=== PATIENT | female | born 1955 | race Caucasian/White ===

== ENCOUNTER 2019-10-22 07:00 | Inpatient (IN) ==
[2019-10-22] MEDS ORDERED: Isovue-370 500 ML BOTTLE IVP ONE (07:36)
[2019-10-22 07:45] LABS: Basophils % 0.3 %; Eosinophils # 0.1 K/mcL (0.0-0.6); Eosinophils % 1.4 %; Hematocrit 28.3 % (35.3-44.9); Hemoglobin 8.3 g/dL (11.5-15.4); Immature Granulocytes % 0.5 % (0-4); Lymphocytes % 21.2 %; Mean Corpuscular HGB Conc 29.3 g/dL (31.6-35.5); Mean Corpuscular Hemoglobin 21.7 pg (28.0-33.3); Mean Corpuscular Volume 73.9 fL (83.0-100.0); Mean Platelet Volume 9.1 fL (9.4-12.4); Monocytes # 0.5 K/mcL (0.0-1.3); Monocytes % 5.6 %; Neutrophils # 6.6 K/mcL (1.6-8.9); Platelet Count 475 K/mcL (140-400); Red Blood Count 3.83 M/mcL (3.82-4.97); White Blood Count 9.3 K/mcL (4.3-11.1)
[2019-10-22 07:46] LABS: VBG HCO3 27 mEq/L (21-27); VBG PCO2 55 mmHg (41-51); VBG PO2 75 mmHg (25-50)
[2019-10-22 07:53] LABS: BUN/Creatinine Ratio 19 (6-26); Blood Urea Nitrogen 17 mg/dL (8-23); Calcium 9.5 mg/dL (8.6-10.3); Carbon Dioxide 25 mEq/L (23-29); Chloride 97 mEq/L (98-107); Glucose 269 mg/dL (70-105); Osmolality,Calculated 287 (280-300); Potassium 3.9 mEq/L (3.5-5.1); Sodium 133 mEq/L (136-145); eGFR For African Americans > 60 (> 60); eGFR For Non-African Americans > 60 (> 60)
[2019-10-22 07:54] LABS: Troponin I < 0.03 ng/mL (< 0.04)
[2019-10-22] MEDS ORDERED: Acetaminophen 325 MG TABLET PO PRN (09:40)
[2019-10-22] MEDS ORDERED: Ondansetron 4 MG/2 ML VIAL IVP PRN (09:40)
[2019-10-22] MEDS ORDERED: Naloxone 0.4 MG/ML INJ IVP PRN ×2 (09:40→12:28)
[2019-10-22] MEDS ORDERED: *HR* Propofol 200 MG/20 ML VIAL IVP ONE ×4 (10:41→12:42)
[2019-10-22] MEDS ORDERED: Lidocaine -MPF 4% 5 ML AMPUL ONE (10:42)
[2019-10-22] MEDS ORDERED: *HR* Metoprolol 5 MG/5 ML VIAL IVP ONE (11:48)
[2019-10-22] MEDS ORDERED: *HR* Rocuronium Bromide 50 MG/5 ML VIAL ONE ×3 (12:19→14:11)
[2019-10-22] MEDS ORDERED: *HR* Midazolam HCl 2 MG/2 ML VIAL ONE (12:20)
[2019-10-22] MEDS ORDERED: Heparin 1,000 UNITS/500 mL 500 ML ONE (12:26)
[2019-10-22] MEDS ORDERED: D5% in Water 1,000 ML IVC PRN (12:28)
[2019-10-22] MEDS ORDERED: Artificial Tears SOLN 15 ML BOTTLE BOTH EYES PRN (12:28)
[2019-10-22] MEDS ORDERED: *HR* Dextrose 50 % in Water (Syg) 50 ML SYRINGE IVP PRN (12:28)
[2019-10-22] MEDS ORDERED: Dextrose Gel 15 GM/37.5 ML TUBE PO PRN ×2 (12:28)
[2019-10-22] MEDS ORDERED: Albuterol 2.5 MG/3 ML NEBULIZER IH PRN (12:33)
[2019-10-22] MEDS ORDERED: *HR* EPINEPHrine 1 MG/10 ML SYRINGE INTRATRACH ONE (12:33)
[2019-10-22] MEDS ORDERED: EPHEDrine 50 MG/ML VIAL ONE ×2 (12:41→13:04)
[2019-10-22] MEDS ORDERED: *HR* Phenylephrine 10 MG/ML VIAL ONE (12:42)
[2019-10-22] MEDS ORDERED: Naloxone 0.4 MG/ML INJ ONE (12:45)
[2019-10-22] MEDS ORDERED: *HR* Norepinephrine 4 MG/4 ML VIAL IVC ONE (12:48)
[2019-10-22] MEDS ORDERED: D5% in Water 250 ML ONE (12:48)
[2019-10-22] MEDS ORDERED: Albumin Human 5% 25.0 GM/500 ML VIAL ONE (12:49)
[2019-10-22] MEDS ORDERED: *HR* Midazolam HCl 5 MG/5 ML VIAL IVP ONE (12:56)
[2019-10-22 13:44] LABS: ABG Base Excess 0 mEq/L (-2 to 3); ABG Chloride 105 mEq/L (98-107); ABG Glucose 127 mg/dL (60-95); ABG HCO3 25 mEq/L (21-27); ABG Ionized Calcium 0.95 mmol/L (1.15-1.35); ABG Oxygen Saturation 100 % (95-98); ABG PCO2 38 mmHg (35-45); ABG PH 7.42 pH Units (7.32-7.45); ABG PO2 448 mmHg (85-104); ABG TCO2 26 mEq/L (20-26)
[2019-10-22] MEDS ORDERED: *HR* Heparin 5,000 UNIT/ML VIAL SQ SCH (14:00)
[2019-10-22] MEDS ORDERED: ceFAZolin 2,000 MG in Water for inj. (sterile) 20 ML IVP ONE (14:00)
[2019-10-22 14:22] LABS: Estimated Average Glucose 157 mg/dl
[2019-10-22] MEDS ORDERED: NiCARdipine 2.5 MG/10 ML Syringe IVPB ONE (14:45)
[2019-10-22] MEDS ORDERED: Amiodarone Premix 360 MG/200 ML BAG IVC ONE ×2 (14:52→16:08)
[2019-10-22] MEDS ORDERED: *HR* Amiodarone 150 MG/3 ML VIAL IVPB ONE (14:52)
[2019-10-22 15:10] LABS: ABG Base Excess 0 mEq/L (-2 to 3); ABG Chloride 105 mEq/L (98-107); ABG Glucose 155 mg/dL (60-95); ABG HCO3 25 mEq/L (21-27); ABG Ionized Calcium 0.86 mmol/L (1.15-1.35); ABG Oxygen Saturation 100 % (95-98); ABG PCO2 40 mmHg (35-45); ABG PO2 473 mmHg (85-104); ABG TCO2 26 mEq/L (20-26)
[2019-10-22] MEDS: Albuterol 2.5 MG/3 ML NEBULIZER IH SCH ×3 (16:20→23:52)
[2019-10-22] MEDS: Ipratropium/Albuterol Neb 3 ML IH SCH ×2 (16:21→22:03)
[2019-10-22] MEDS: FentaNYL (PF) 1,000 MCG in 0.9 % Sodium Chloride 80 ML IVC SCH (16:30)
[2019-10-22] MEDS: 0.9 % Sodium Chloride 1,000 ML IVC SCH (16:59)
[2019-10-22 17:17] LABS: ABG Base Excess -1 mEq/L (-2 to 3); ABG HCO3 24 mEq/L (21-27); ABG Oxygen Saturation 100 % (95-98); ABG PCO2 40 mmHg (35-45); ABG PH 7.38 pH Units (7.32-7.45); ABG PO2 247 mmHg (85-104); ABG TCO2 25 mEq/L (20-26); Blood Gas Modality ASSIST CONTROL; Blood Gas VT 450 cc
[2019-10-22] MEDS: Artificial Tears SOLN 15 ML BOTTLE BOTH EYES SCH ×3 (18:20→23:13)
[2019-10-22] MEDS: Insulin LISPRO 300 UNITS/3 ML VIAL SQ SCH ×2 (18:21→23:13)
[2019-10-22 20:36] LABS: Hematocrit 23.7 % (35.3-44.9); Hemoglobin 6.9 g/dL (11.5-15.4)
[2019-10-22] MEDS: Chlorhexidine Rinse 15 ML MOUTHWASH MM SCH (20:37)
[2019-10-22] MEDS: Amiodarone Premix 360 MG/200 ML BAG IVC SCH (20:44)
[2019-10-22] MEDS: *HR* Heparin 5,000 UNIT/ML VIAL SQ SCH (22:19)
[2019-10-22] MEDS: *HR* Labetalol 20 MG/4 ML SYRINGE IVP PRN (22:24)
[2019-10-22] MEDS: ceFAZolin 1,000 MG in Water for inj. (sterile) 10 ML IVP SCH (23:16)
[2019-10-23] MEDS: Albuterol 2.5 MG/3 ML NEBULIZER IH SCH (03:46)
[2019-10-23] MEDS: Ipratropium/Albuterol Neb 3 ML IH SCH ×4 (03:47→21:17)
[2019-10-23] MEDS: Dexmedetomidine HCl 400 MCG/100 ML MLS IVC SCH ×2 (04:12→11:04)
[2019-10-23] MEDS: Artificial Tears SOLN 15 ML BOTTLE BOTH EYES SCH ×6 (04:19→23:15)
[2019-10-23 04:35] LABS: ABG Base Excess 1 mEq/L (-2 to 3); ABG HCO3 27 mEq/L (21-27); ABG Oxygen Saturation 99 % (95-98); ABG PCO2 46 mmHg (35-45); ABG PH 7.37 pH Units (7.32-7.45); ABG PO2 145 mmHg (85-104); ABG TCO2 28 mEq/L (20-26); Blood Gas Modality ASSIST CONTROL; Blood Gas VT 450 cc
[2019-10-23] MEDS: 0.9 % Sodium Chloride 1,000 ML IVC SCH ×2 (05:01→16:59)
[2019-10-23] MEDS: *HR* Heparin 5,000 UNIT/ML VIAL SQ SCH ×3 (05:01→20:33)
[2019-10-23 05:10] LABS: Basophils % 0.1 %; Hematocrit 22.2 % (35.3-44.9); Hemoglobin 6.7 g/dL (11.5-15.4); Immature Granulocytes % 0.3 % (0-4); Lymphocytes # 1.1 K/mcL (0.6-4.6); Lymphocytes % 11.5 %; Mean Corpuscular HGB Conc 30.2 g/dL (31.6-35.5); Mean Corpuscular Hemoglobin 21.9 pg (28.0-33.3); Mean Corpuscular Volume 72.5 fL (83.0-100.0); Mean Platelet Volume 9.2 fL (9.4-12.4); Monocytes # 0.9 K/mcL (0.0-1.3); Monocytes % 10.3 %; Neutrophils # 7.1 K/mcL (1.6-8.9); Platelet Count 405 K/mcL (140-400); Red Blood Count 3.06 M/mcL (3.82-4.97); Red Cell Distribution Width 16.1 % (11.5-14.5); Segmented Neutrophils % 77.8 %; White Blood Count 9.2 K/mcL (4.3-11.1)
[2019-10-23 05:14] LABS: INR 1.2; Prothrombin Time 13.4 Seconds (9.4-12.1)
[2019-10-23 05:28] LABS: Alanine Aminotransferase 4 Units/L (7-52); Albumin 2.7 g/dL (3.5-5.7); Albumin/Globulin Ratio 0.9 (1.1-2.2); Alkaline Phosphatase 63 Units/L (34-104); Aspartate Amino Transferase 8 Units/L (13-39); BUN/Creatinine Ratio 21 (6-26); Bilirubin,Total 0.1 mg/dL (0.3-1.0); Blood Urea Nitrogen 17 mg/dL (8-23); Carbon Dioxide 23 mEq/L (23-29); Chloride 102 mEq/L (98-107); Globulin 2.9 g/dL (2.4-3.5); Glucose 206 mg/dL (70-105); Osmolality,Calculated 290 (280-300); Phosphorous 4.8 mg/dL (2.7-4.5); Potassium 3.7 mEq/L (3.5-5.1); Sodium 136 mEq/L (136-145); Total Protein 5.6 g/dL (6.4-8.9); eGFR For African Americans > 60 (> 60); eGFR For Non-African Americans > 60 (> 60)
[2019-10-23] MEDS: Insulin LISPRO 300 UNITS/3 ML VIAL SQ SCH ×4 (06:38→23:48)
[2019-10-23] MEDS ORDERED: 0.9 % Sodium Chloride 250 ML ONE (08:19)
[2019-10-23] MEDS: ceFAZolin 1,000 MG in Water for inj. (sterile) 10 ML IVP SCH ×3 (08:21→23:48)
[2019-10-23] MEDS: Chlorhexidine Rinse 15 ML MOUTHWASH MM SCH ×2 (08:21→20:31)
[2019-10-23] MEDS: Amiodarone Premix 360 MG/200 ML BAG IVC SCH ×2 (08:21→20:33)
[2019-10-23] MEDS: Pantoprazole 40 MG VIAL IVP SCH (08:21)
[2019-10-23] MEDS: FentaNYL (PF) 1,000 MCG in 0.9 % Sodium Chloride 80 ML IVC SCH (11:04)
[2019-10-23] MEDS ORDERED: Furosemide 20 MG/2 ML VIAL IVP ONE (11:13)
[2019-10-23] MEDS ORDERED: Acetaminophen IV 1,000 MG/100 ML INFUS..BTL IVPB ONE (11:38)
[2019-10-23] MEDS: *HR* Labetalol 20 MG/4 ML SYRINGE IVP PRN ×2 (15:45→20:38)
[2019-10-23 18:07] LABS: Hematocrit 28.2 % (35.3-44.9)
[2019-10-23 18:08] LABS: Hemoglobin 8.6 g/dL (11.5-15.4)
[2019-10-23] MEDS ORDERED: *HR* OxyCODONE Oral Soln 5 MG/5 ML UD.LIQ PO PRN (18:40)
[2019-10-24] MEDS: Artificial Tears SOLN 15 ML BOTTLE BOTH EYES SCH ×5 (03:23→23:27)
[2019-10-24] MEDS: Ipratropium/Albuterol Neb 3 ML IH SCH ×4 (03:36→21:26)
[2019-10-24 03:45] LABS: Basophils % 0.1 %; Hematocrit 26.9 % (35.3-44.9); Hemoglobin 8.6 g/dL (11.5-15.4); Immature Granulocytes % 0.4 % (0-4); Lymphocytes # 1.6 K/mcL (0.6-4.6); Lymphocytes % 11.5 %; Mean Corpuscular Hemoglobin 23.9 pg (28.0-33.3); Mean Corpuscular Volume 74.7 fL (83.0-100.0); Monocytes # 1.3 K/mcL (0.0-1.3); Monocytes % 9.5 %; Neutrophils # 10.6 K/mcL (1.6-8.9); Platelet Count 501 K/mcL (140-400); Red Cell Distribution Width 17.6 % (11.5-14.5); Segmented Neutrophils % 78.5 %; White Blood Count 13.5 K/mcL (4.3-11.1)
[2019-10-24 03:59] LABS: BUN/Creatinine Ratio 22 (6-26); Blood Urea Nitrogen 18 mg/dL (8-23); Calcium 8.2 mg/dL (8.6-10.3); Carbon Dioxide 25 mEq/L (23-29); Chloride 100 mEq/L (98-107); Glucose 131 mg/dL (70-105); Osmolality,Calculated 280 (280-300); Potassium 3.4 mEq/L (3.5-5.1); Sodium 133 mEq/L (136-145); eGFR For African Americans > 60 (> 60); eGFR For Non-African Americans > 60 (> 60)
[2019-10-24] MEDS: Insulin LISPRO 300 UNITS/3 ML VIAL SQ SCH ×3 (06:53→18:37)
[2019-10-24] MEDS: *HR* Heparin 5,000 UNIT/ML VIAL SQ SCH ×3 (06:54→20:25)
[2019-10-24] MEDS: Chlorhexidine Rinse 15 ML MOUTHWASH MM SCH ×2 (08:27→23:27)
[2019-10-24] MEDS: 0.9 % Sodium Chloride 1,000 ML IVC SCH ×2 (08:28→23:27)
[2019-10-24] MEDS: Pantoprazole 40 MG VIAL IVP SCH (08:28)
[2019-10-24] MEDS: *HR* Amiodarone 200 MG TABLET PO SCH ×2 (15:02→20:24)
[2019-10-25] MEDS: Artificial Tears SOLN 15 ML BOTTLE BOTH EYES SCH ×3 (00:10→08:02)
[2019-10-25] MEDS: Insulin LISPRO 300 UNITS/3 ML VIAL SQ SCH ×4 (01:16→17:13)
[2019-10-25] MEDS: Ipratropium/Albuterol Neb 3 ML IH SCH ×4 (03:27→21:47)
[2019-10-25] MEDS: *HR* Heparin 5,000 UNIT/ML VIAL SQ SCH ×3 (06:23→20:58)
[2019-10-25] MEDS: *HR* Amiodarone 200 MG TABLET PO SCH (07:59)
[2019-10-25] MEDS: Chlorhexidine Rinse 15 ML MOUTHWASH MM SCH (07:59)
[2019-10-25] MEDS: Pantoprazole 40 MG VIAL IVP SCH (07:59)
[2019-10-25] MEDS ORDERED: Iron Sucrose Complex 400 MG in 0.9 % Sodium Chloride 250 ML IVPB ONE ×2 (08:08→08:50)
[2019-10-25] MEDS ORDERED: *HR* HYDROcodone/Acet 5/325 mg TABLET PO PRN ×2 (08:08→08:50)
[2019-10-25] MEDS ORDERED: *HR* Dextrose 50 % in Water (Syg) 50 ML SYRINGE IVP PRN (08:50)
[2019-10-25] MEDS ORDERED: D5% in Water 1,000 ML IVC PRN (08:50)
[2019-10-25] MEDS ORDERED: Naloxone 0.4 MG/ML INJ IVP PRN (08:50)
[2019-10-25] MEDS ORDERED: Ondansetron 4 MG/2 ML VIAL IVP PRN (08:50)
[2019-10-25] MEDS ORDERED: Dextrose Gel 15 GM/37.5 ML TUBE PO PRN ×2 (08:50)
[2019-10-25] MEDS ORDERED: Famotidine 20 MG TABLET PO SCH (09:00)
[2019-10-25] MEDS ORDERED: *HR* Amiodarone 200 MG TABLET PO SCH (09:00)
[2019-10-25] MEDS ORDERED: Gabapentin 300 MG CAPSULE PO SCH (09:00)
[2019-10-25] MEDS: Gabapentin 300 MG CAPSULE PO SCH ×3 (09:29→20:39)
[2019-10-25] MEDS: Famotidine 20 MG TABLET PO SCH ×2 (09:30→15:46)
[2019-10-25] MEDS ORDERED: Gadolinium Contrast Agent (WT Based) IV PRN (11:22)
[2019-10-25] MEDS ORDERED: Insulin LISPRO 300 UNITS/3 ML VIAL SQ SCH (12:00)
[2019-10-25] MEDS: Sennosides/Docusate Sodium TABLET PO SCH (20:37)
[2019-10-26] MEDS: Insulin LISPRO 300 UNITS/3 ML VIAL SQ SCH ×5 (00:11→21:33)
[2019-10-26] MEDS: Ipratropium/Albuterol Neb 3 ML IH SCH ×4 (03:48→22:00)
[2019-10-26 04:49] LABS: Hematocrit 27.7 % (35.3-44.9); Hemoglobin 8.3 g/dL (11.5-15.4); Mean Corpuscular Hemoglobin 23.1 pg (28.0-33.3); Mean Corpuscular Volume 76.9 fL (83.0-100.0); Mean Platelet Volume 9.4 fL (9.4-12.4); Platelet Count 479 K/mcL (140-400); Red Cell Distribution Width 17.9 % (11.5-14.5); White Blood Count 8.5 K/mcL (4.3-11.1)
[2019-10-26 05:05] LABS: Calcium 8.4 mg/dL (8.6-10.3); Potassium 3.6 mEq/L (3.5-5.1)
[2019-10-26] MEDS: *HR* Heparin 5,000 UNIT/ML VIAL SQ SCH ×3 (05:43→21:32)
[2019-10-26] MEDS: Gabapentin 300 MG CAPSULE PO SCH (08:14)
[2019-10-26] MEDS: Sennosides/Docusate Sodium TABLET PO SCH ×2 (08:17→21:32)
[2019-10-26] MEDS: Famotidine 20 MG TABLET PO SCH ×2 (08:18→15:26)
[2019-10-27] MEDS: Ipratropium/Albuterol Neb 3 ML IH SCH ×4 (03:36→21:51)
[2019-10-27 04:50] LABS: Hematocrit 28.4 % (35.3-44.9); Hemoglobin 8.3 g/dL (11.5-15.4); Mean Corpuscular HGB Conc 29.2 g/dL (31.6-35.5); Mean Corpuscular Hemoglobin 22.8 pg (28.0-33.3); Mean Platelet Volume 9.2 fL (9.4-12.4); Platelet Count 515 K/mcL (140-400); Red Blood Count 3.64 M/mcL (3.82-4.97); Red Cell Distribution Width 17.7 % (11.5-14.5); White Blood Count 8.1 K/mcL (4.3-11.1)
[2019-10-27 05:19] LABS: BUN/Creatinine Ratio 25 (6-26); Blood Urea Nitrogen 26 mg/dL (8-23); Calcium 8.7 mg/dL (8.6-10.3); Carbon Dioxide 26 mEq/L (23-29); Chloride 103 mEq/L (98-107); Glucose 173 mg/dL (70-105); Osmolality,Calculated 295 (280-300); Potassium 4.5 mEq/L (3.5-5.1); Sodium 138 mEq/L (136-145); eGFR For African Americans > 60 (> 60); eGFR For Non-African Americans 53 (> 60)
[2019-10-27] MEDS: *HR* Heparin 5,000 UNIT/ML VIAL SQ SCH ×3 (05:50→21:46)
[2019-10-27] MEDS: Sennosides/Docusate Sodium TABLET PO SCH ×2 (07:52→21:46)
[2019-10-27] MEDS: Famotidine 20 MG TABLET PO SCH ×2 (07:53→21:47)
[2019-10-27] MEDS: Insulin LISPRO 300 UNITS/3 ML VIAL SQ SCH ×4 (07:54→21:45)
[2019-10-28 01:47] LABS: Hematocrit 25.3 % (35.3-44.9); Hemoglobin 7.5 g/dL (11.5-15.4); Mean Corpuscular HGB Conc 29.6 g/dL (31.6-35.5); Mean Corpuscular Hemoglobin 23.1 pg (28.0-33.3); Mean Corpuscular Volume 78.1 fL (83.0-100.0); Mean Platelet Volume 9.1 fL (9.4-12.4); Platelet Count 465 K/mcL (140-400); Red Blood Count 3.24 M/mcL (3.82-4.97); Red Cell Distribution Width 18.1 % (11.5-14.5); White Blood Count 7.6 K/mcL (4.3-11.1)
[2019-10-28 02:11] LABS: BUN/Creatinine Ratio 23 (6-26); Blood Urea Nitrogen 22 mg/dL (8-23); Calcium 8.4 mg/dL (8.6-10.3); Carbon Dioxide 24 mEq/L (23-29); Chloride 103 mEq/L (98-107); Glucose 140 mg/dL (70-105); Magnesium 1.9 mg/dL (1.6-2.6); Osmolality,Calculated 288 (280-300); Sodium 136 mEq/L (136-145); eGFR For African Americans > 60 (> 60); eGFR For Non-African Americans 59 (> 60)
[2019-10-28] MEDS: Ipratropium/Albuterol Neb 3 ML IH SCH ×2 (04:08→10:19)
[2019-10-28] MEDS: *HR* Heparin 5,000 UNIT/ML VIAL SQ SCH (06:26)
[2019-10-28] MEDS: Sennosides/Docusate Sodium TABLET PO SCH (08:15)
[2019-10-28] MEDS: Famotidine 20 MG TABLET PO SCH (08:15)
[2019-10-28] MEDS: Insulin LISPRO 300 UNITS/3 ML VIAL SQ SCH (08:16)
[2019-10-28] MEDS ORDERED: Acetaminophen 325 MG TABLET PO PRN (08:57)
[2019-10-28 11:34] VITALS: BP 112/62
== END 2019-10-28 13:10 | disposition home or self-care (01) | DRG 163 ==
LOC: SUATTDRO → EMEROOARM 07:00 → 2ANU 11:52 → ICNU 12:09 → 2NNU 10-25 10:33
PROVIDERS: ADMIT Pharmacist; ATTEND Pharmacist
PROC: ENDOBBX (2019-10-22 11:30)